=== PATIENT | male | born 1945 | race Caucasian/White ===

== ENCOUNTER 2016-11-13 04:52 | Emergency (ER) | payer MEDICARE, OTHER ==
[2016-11-13] MEDS ORDERED: OXYCODONE/ACETAMINOPHEN 5/325 MG TABLET ONE (05:33)
== END 2016-11-13 08:21 | disposition home or self-care (01) ==
LOC: ED 04:52
DX: M54.5 Low back pain (principal); J45.909 Unspecified asthma, uncomplicated; G20 Parkinson's disease; N20.0 Calculus of kidney; E11.9 Type 2 diabetes mellitus without complications; E78.5 Hyperlipidemia, unspecified; I10 Essential (primary) hypertension
CPT/HCPCS: 99283 ×2; A9270